=== PATIENT | male | born 1990 | race African-American/Black ===

== ENCOUNTER 2016-09-09 11:27 | Emergency (ER) | payer OTHER ==
[~2016-09-09] VITALS: Ht 180.3 cm; Wt 90.7 kg
--- NOTE | ~2016-09-09 | EKG ---
[address] [address] ELECTROCARDIOGRAM REPORT Name: GUS GALLAGHER [id number] Admission: 09/09/16 Attend Phys: Discharge: 09/09/16 Date of : [birth year] Report #: [id number] THIS REPORT FOR: //name// [facility] ED Test Date: 2016-09-09 Test Time: 12:10:39 Pat Name: GUS GALLAGHER Department: Room: Gender: [employer] Instructor: Baltazar NEGRO : 1990 Requested By: Chirag Warner Order Number: [id number] MD: Bobo Connors Measurements Intervals [place] Rate: 70 P: 20 MA: 164 QRS: 78 QRSD: 83 T: 61 QT: 350 QTc: 378 Interpretive Statements Sinus rhythm Compared to ECG 04/02/2015 02:56:40 Sinus bradycardia no longer present Electronically Signed On 09-09-2016 22:06:14 CDT by Bobo Connors [email or web address] <ELECTRONICALLY SIGNED> By: Bobo Connors MD 09/09/16 2206 1210 1210 Bobo Connors MD /[email or web address]
[~2016-09-09 11:27] MED LIST: CENTRUM SILVER1 EAC4 PO; IBUPROFEN 200200 M1 PO; IBUPROFEN 800800 MG PO; LIORESAL 10 MG10 MG PO; METHOTREXATE 22.5 MG PO; NOHOMEMEDICATIONS; PENICILLIN V P500 MG PO; PERCOCET 5-3251 EACH PO; PREDNISONE 10 M10 MG PO; PREDNISONE 20 M20 MG PO; TRAMADOL 50 MG50 MG PO; VENTOLIN HFA 1818 GM INH; ZPAK PO
[2016-09-09 12:18] LABS: ABSOLUTE NEUTROPHILS 7.8 thou/uL (1.4-8.2); BASOPHILS 0.4 % (0.0-2.0); EOSINOPHILS 0.4 % (0.0-3.0); HEMATOCRIT 44.8 % (42.0-52.0); HEMOGLOBIN 15.2 gm/dL (14.0-18.0); MCH 33.4 pg (26.0-34.0); MCHC 33.9 g/dL (28.0-37.0); MCV 98.4 fL (80.0-100.0); MONOCYTES 7.2 % (1.0-8.0); PLATELET COUNT 204 thou/uL (150-400); RBC 4.55 mil/uL (4.50-6.00); RDW 13.2 % (10.5-14.5); WBC 10.5 thou/uL (4.0-11.0)
[2016-09-09 12:19] LABS: MANUAL DIFF NO
[2016-09-09 12:30] LABS: CALCIUM 8.7 mg/dL (8.5-10.1); POTASSIUM 3.8 mmol/L (3.5-5.1)
[2016-09-09 12:35] LABS: DIRECT BILIRUBIN 0.1 mg/dL (<0.1-0.3); TOTAL BILIRUBIN 0.6 mg/dL (<0.1-1.0); TOTAL PROTEIN 7.4 g/dL (6.4-8.2)
[2016-09-09 15:50] LABS: URINE BILIRUBIN NEGATIVE (Negative); URINE BLOOD NEGATIVE (Negative); URINE COLOR YELLOW; URINE GLUCOSE-RANDOM* NEGATIVE (Negative); URINE KETONES NEGATIVE (Negative); URINE NITRITE NEGATIVE (Negative); URINE PROTEIN (DIPSTICK) 1+ (Negative); URINE SPECIFIC GRAVITY 1.025 (1.003-1.035); URINE UROBILINOGEN 0.2 E.U./dl (0.2-1.0)
[2016-09-09] MEDS ORDERED: NORCO 5-325 TA1 EACH PO (15:51)
[2016-09-09 16:03] LABS: BACTERIA None Seen /HPF (None Seen); CASTS None Seen /LPF (None Seen); CRYSTALS None Seen /LPF (None Seen); SQUAMOUS 0-3 Few /LPF (0-3); URINE RBC 0-2 Rare /HPF (0-2); URINE WBC 0-5 Rare /HPF (0-5)
[2016-09-09 16:07] LABS: AMP/METHAMP Negative (Negative); BARBITURATES Negative (Negative); BENZODIAZEPINES Negative (Negative); COCAINE Negative (Negative); METHADONE Negative (Negative); OPIATES POSITIVE (Negative); PCP Negative (Negative); THC POSITIVE (Negative)
== END 2016-09-09 15:58 | disposition home or self-care (01) ==
LOC: ER 11:27
PROVIDERS: Nurse Practitioner
DX: M87.88 Other osteonecrosis, other site (principal); M54.9 Dorsalgia, unspecified; M19.90 Unspecified osteoarthritis, unspecified site; F17.210 Nicotine dependence, cigarettes, uncomplicated; F12.10 Cannabis abuse, uncomplicated; Z88.6 Allergy status to analgesic agent; Z88.8 Allergy status to other drugs, medicaments and biological substances; W17.89XA Other fall from one level to another, initial encounter; Y93.89 Activity, other specified; Y92.89 Other specified places as the place of occurrence of the external cause; Y99.8 Other external cause status

== ENCOUNTER 2018-09-03 19:47 | Emergency (ER) | payer OTHER ==
[~2018-09-03] VITALS: Ht 172.7 cm; Wt 77.1 kg
[~2018-09-03 19:47] MED LIST changes: +NORCO 5-325 TA1 EACH PO
[2018-09-03 21:57] LABS: ABSOLUTE NEUTROPHILS 5.2 thou/uL (1.4-8.2); EOSINOPHILS 1.7 % (0.0-3.0); HEMATOCRIT 41.5 % (42.0-52.0); LYMPHOCYTES 28.8 % (24.0-44.0); MCHC 33.8 g/dL (28.0-37.0); MCV 100.7 fL (80.0-100.0); MONOCYTES 8.8 % (1.0-8.0); PLATELET COUNT 177 thou/uL (150-400); POLYS 59.7 % (36.0-66.0); RBC 4.12 mil/uL (4.50-6.00); RDW 12.5 % (10.5-14.5); WBC 8.8 thou/uL (4.0-11.0)
[2018-09-03 22:07] LABS: CALCIUM 9.1 mg/dL (8.5-10.1); POTASSIUM 3.9 mmol/L (3.5-5.1)
[2018-09-03] MEDS ORDERED: HYDROCODON-ACE1 EAC7 PO (22:16)
[2018-09-03 22:36] VITALS: BP 115/66
== END 2018-09-03 22:37 | disposition home or self-care (01) ==
LOC: ER 19:47
PROVIDERS: Nurse Practitioner Family
DX: M06.852 Other specified rheumatoid arthritis, left hip (principal); M06.851 Other specified rheumatoid arthritis, right hip; Z87.39 Personal history of other diseases of the musculoskeletal system and connective tissue; F17.210 Nicotine dependence, cigarettes, uncomplicated; Z88.5 Allergy status to narcotic agent; Z88.8 Allergy status to other drugs, medicaments and biological substances